=== PATIENT | male | born 1945 | race Caucasian/White ===

== ENCOUNTER 2018-05-16 10:50 | Day surgery (SDC) | payer MEDICARE, OTHER ==
[2018-05-16] MEDS: MOXIFLOXACIN 0.5% 3 ML OPH OPER (11:00)
[2018-05-16] MEDS ORDERED: CYCLOPENTOLATE 2% 2 ML OPH OPER (11:00)
[2018-05-16] MEDS ORDERED: BUPIVACAINE 0.75% (MPF) 10 ML INJ (11:04)
[2018-05-16] MEDS ORDERED: SODIUM BICARBONATE (IV ADD) 50 ML (11:04)
[2018-05-16] MEDS ORDERED: LIDOCAINE 4% (MPF) 5 ML INJ (11:29)
[2018-05-16] MEDS ORDERED: LIDOCAINE 1% (MPF) 10 ML INJ (11:30)
[2018-05-16] MEDS ORDERED: EPINEPHrine 1 MG INJ (11:30)
[2018-05-16] MEDS ORDERED: TIMOLOL 0.5% 5 ML OPH (11:30)
[2018-05-16] MEDS ORDERED: LIDOCAINE 2% (SDV) 5 ML INJ (11:31)
[2018-05-16] MEDS: PHENYLephrine 10% 5 ML OPH OPER ×4 (12:55→12:56)
[2018-05-16] MEDS ORDERED: ROCURONIUM 50 MG INJ (13:10)
[2018-05-16] MEDS ORDERED: PROPOFOL 40 ML (13:10)
[2018-05-16] MEDS ORDERED: SUCCINYLCHOLINE CHLORIDE 100 MG/5 ML SYG IV (13:10)
[2018-05-16] MEDS ORDERED: hydrALAzine 20 MG INJ (13:23)
[2018-05-16] MEDS ORDERED: SOD CHLORIDE 0.9% 1,000 ML IV (13:30)
[2018-05-16] MEDS ORDERED: CARBACHOL 0.01% 1.5 ML OPH INJ (13:49)
[2018-05-16] MEDS ORDERED: ONDANSETRON 4 MG INJ (13:54)
[2018-05-16] MEDS ORDERED: METOCLOPRAMIDE 10 MG INJ (13:54)
[2018-05-16] MEDS ORDERED: PHENYLephrine (100 MCG/ML) 5ML SYG (13:54)
[2018-05-16] MEDS ORDERED: DEXAMETHASONE 4 MG/ML 1 ML INJ (13:54)
[2018-05-16] MEDS ORDERED: SUGAMMADEX SODIUM 200 MG/2 ML VIAL IV (13:56)
[2018-05-16] MEDS ORDERED: EPHEDrine SULFATE 50 MG/5 ML SYG IV (14:00)
[2018-05-16] MEDS ORDERED: LABETALOL HCL 20MG INJ IV (14:00)
[2018-05-16] MEDS ORDERED: FENTAnyl 50 MCG/ML VIAL IV (14:00)
[2018-05-16] MEDS ORDERED: MEPERIDINE 25 MG INJ IV (14:00)
[2018-05-16] MEDS ORDERED: DIPHENHYDRAMINE 50 MG INJ IV (14:00)
[2018-05-16] MEDS ORDERED: hydrALAzine 20 MG INJ IV (14:00)
[2018-05-16] MEDS ORDERED: METOCLOPRAMIDE 10 MG INJ IV (14:00)
[2018-05-16] MEDS ORDERED: ONDANSETRON 4 MG INJ IV (14:00)
[2018-05-16] MEDS: TIMOLOL 0.5% 5 ML OPH LEFT EYE (14:05)
[2018-05-16] MEDS ORDERED: ALBUTEROL 0.5% (NEB) 2.5 MG/0.5 ML AMP (14:13)
[2018-05-16] MEDS: IPRATROPIUM (NEB) 0.5 MG/2.5 ML AMP HHN (14:20)
[2018-05-16] MEDS: ALBUTEROL 0.083% (NEB) 2.5 MG/3 ML AMP HHN (14:20)
[2018-05-16] MEDS: FENTAnyl 50 MCG/ML VIAL IV (14:23)
== END 2018-05-16 15:40 | disposition home or self-care (01) ==
LOC: SDS 10:50
DX: H25.12 Age-related nuclear cataract, left eye (principal); I10 Essential (primary) hypertension; E66.9 Obesity, unspecified; Z68.43 Body mass index [BMI] 50.0-59.9, adult
CPT/HCPCS: 66984; 94664